=== PATIENT | female | born 1960 ===

== ENCOUNTER 2018-03-22 20:14 | Emergency (ER) | payer OTHER ==
[~2018-03-22] VITALS: Ht 167.6 cm; Wt 68.0 kg
[2018-03-22] MEDS ORDERED: COZAAR25 MG (21:00)
== END 2018-03-22 22:49 | disposition home or self-care (01) ==
LOC: ER 20:14
DX: S61.411A Laceration without foreign body of right hand, initial encounter (principal); W45.8XXA Other foreign body or object entering through skin, initial encounter; Y93.89 Activity, other specified; Y92.098 Other place in other non-institutional residence as the place of occurrence of the external cause; Y99.8 Other external cause status

== ENCOUNTER 2018-03-30 07:25 | Emergency (ER) | payer OTHER ==
[~2018-03-30] VITALS: Ht 170.2 cm; Wt 72.6 kg
[~2018-03-30 07:25] MED LIST: AMOX1TAB5 PO; COZAAR25 MG; LEVAQUIN500 MG PO; PROVENTIL3 ML/2.5 M IH; TUSNEL LIQUID178 ML PO
== END 2018-03-30 08:49 | disposition home or self-care (01) ==
LOC: ER 07:25
DX: Z48.02 Encounter for removal of sutures (principal)

== ENCOUNTER 2021-06-27 23:25 | Emergency (ER) | payer OTHER ==
[~2021-06-27] VITALS: Ht 170.2 cm; Wt 70.3 kg
[2021-06-28] MEDS ORDERED: ATACAND HCT 321 EACH PO (00:35)
[2021-06-28] MEDS ORDERED: CRESTOR20 MG PO (00:36)
== END 2021-06-28 01:06 | disposition home or self-care (01) ==
LOC: ER 23:25
DX: R07.89 Other chest pain (principal)